=== PATIENT | female | born 1960 | race Caucasian/White ===

== ENCOUNTER 2021-02-28 10:51 | Emergency (ER) | payer BC ==
[2021-02-28 11:19] LABS: #Monocytes 0.3 10x3/uL (0.0-1.1); %Basophils 0.6 % (0.0-2.0); %Eosinophils 0.6 % (0.0-6.0); %Lymphocytes 41.4 % (18.0-47.0); %Monocytes 10.3 % (0.0-10.0); Hemoglobin 12.2 g/dL (12.0-15.5); Mean Corpuscular HGB CONC 32.9 g/dL (32.0-36.0); Mean Corpuscular Hemoglobin 30.6 pg (27.0-33.0); Mean Platelet Volume 10.5 fl (7.4-10.4); Platelet Count 152 10x3/uL (150-450); RBC Distribution Width 12.5 % (11.5-14.5); Red Blood Cell (RBC) Count 3.99 10x6/uL (3.90-5.03); White Blood Cell (WBC) Count 3.2 10x3/uL (3.5-10.5)
[2021-02-28 11:20] LABS: #Neutrophils 1.5 10x3/uL (1.5-8.4); %Neutrophils 47.1 % (40.0-75.0)
[2021-02-28 11:27] LABS: Chloride 105 mmol/L (98-107); Potassium 3.9 mmol/L (3.5-5.1); Sodium 139 mmol/L (136-145)
[2021-02-28 11:41] LABS: ALT (SGPT) 23 U/L (8-55); AST (SGOT) 21 U/L (5-34); Albumin 4.1 g/dL (3.5-5.0); Alkaline Phosphatase 64 U/L (40-110); BUN (Urea Nitrogen) 15 mg/dL (9.8-20.1); Bilirubin, Total 0.4 mg/dL (0.2-1.2); Calc. Creatinine Clearance 0 mL/min (70-130); Carbon Dioxide 25 mmol/L (22-29); Globulin 2.3 g/dL (2.4-3.5); Glucose 129 mg/dL (70-105); Protein, Total 6.4 g/dL (6.0-8.3)
[2021-02-28 11:43] LABS: Anion Gap 9 mmol/L (10-20)
== END 2021-02-28 13:43 | disposition home or self-care (01) ==
LOC: CSHERS 10:51
DX: R55 Syncope and collapse (principal); R00.2 Palpitations
CPT/HCPCS: 70450; 71045; 80053; 83735; 84443; 84484; 85025; 93005

== ENCOUNTER 2022-07-08 08:51 | Outpatient (CLI) | payer BC | END 2022-07-08 08:52 | disposition home or self-care (01) | LOC: CSHMAMMO 08:51 | PROVIDERS: ATTEND Physician Assistant | DX: Z12.31 Encounter for screening mammogram for malignant neoplasm of breast (principal); Z80.3 Family history of malignant neoplasm of breast | CPT/HCPCS: 77063; 77067 ==

== ENCOUNTER 2025-02-06 08:32 | Outpatient (CLI) | payer BC ==
[2025-02-06 09:33] LABS: Estimated GFR - POC 72.0
== END 2025-02-06 08:33 | disposition home or self-care (01) ==
LOC: CSHCT 08:32
PROVIDERS: ATTEND Physician Assistant Medical
DX: K82.8 Other specified diseases of gallbladder (principal); K21.9 Gastro-esophageal reflux disease without esophagitis; R10.12 Left upper quadrant pain; R10.13 Epigastric pain
CPT/HCPCS: 36415; 74177; 82565